=== PATIENT | female | born 1955 ===

== ENCOUNTER 2024-03-30 14:55 | Outpatient (CLI) | payer MEDICARE, SELFPAY ==
--- NOTE | ~2024-03-30 | MR_ITS ---
EXAMINATION: MR abdomen wo/w con DATE: 03/30/2024 16:12 INDICATION: Right kidney mass. TECHNIQUE: Magnetic resonance imaging (MRI) of the abdomen was performed without and with 14 mL Multi Becca intravenous contrast. COMPARISON: None. FINDINGS: There are cysts in the liver measuring up to 5 mm. There is a 9 mm hyperenhancing mass in the liver, likely a hemangioma or focal nodular hyperplasia. The spleen is normal. There are gallstones in the g allbladder, which is normal in size. The pancreas and adrenal glands are normal. There is a 12 mm cys tic mass of right kidney inferior pole with nodular enhancing component. There are cysts in right kid vero measuring up to 7 mm. There are changes of ablation of left kidney upper pole with 2.5 cm thick-w alled cyst in the area of the ablation that may be a chronic hematoma. There are no dilated loops of bowel. There are no pathologically enlarged lymph nodes. There is no free intraperitoneal fluid. IMPRESSION: 1. 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 Reviewed, dictated and finalized at location A.
== END 2024-03-30 14:56 ==
DX: N28.1 Cyst of kidney, acquired (principal); R93.5 Abnormal findings on diagnostic imaging of other abdominal regions, including retroperitoneum
CPT/HCPCS: 74183; A9577